=== PATIENT | female | born 1960 | race Caucasian/White ===

== ENCOUNTER 2017-11-07 18:39 | Emergency (ER) | payer BC ==
[2017-11-07] MEDS: KETOROLAC 15 MG INJ IM (20:01)
== END 2017-11-07 20:46 | disposition home or self-care (01) ==
LOC: FTE 18:39
DX: R51 Headache (principal); I10 Essential (primary) hypertension
CPT/HCPCS: 93005; 96372; 99284-25

== ENCOUNTER 2018-01-22 11:24 | Emergency (ER) | payer BC ==
[2018-01-22 13:12] LABS: ADD UMIC YES; UR ASCORBIC ACID NEGATIVE (NEGATIVE); UR BACTERIA FEW /HPF (NONE SEEN); UR BILIRUBIN (Dip) NEGATIVE (NEGATIVE); UR BLOOD (Dip) 2+ mg/dL (NEGATIVE); UR CLARITY CLEAR (CLEAR); UR COLOR COLORLESS (YELLOW); UR GLUCOSE (Dip) NEGATIVE (NEGATIVE); UR KETONES (Dip) NEGATIVE (NEGATIVE); UR LEUKOCYTE ESTERASE (Dip) NEGATIVE Leu/ul (NEGATIVE); UR NITRITE (Dip) NEGATIVE (NEGATIVE); UR RBC 0 /HPF (0-5); UR SPECIFIC GRAVITY (Dip) 1.003 (1.003-1.030); UR SQUAMOUS EPITHELIAL CELL FEW /HPF (FEW); UR TOTAL PROTEIN (Dip) NEGATIVE (NEGATIVE); UR UROBILINOGEN (Dip) NEGATIVE (NEGATIVE); UR WBC 1 /HPF (0-5)
== END 2018-01-22 14:58 | disposition home or self-care (01) ==
LOC: E/R 11:24
DX: R10.84 Generalized abdominal pain (principal); R35.0 Frequency of micturition; E11.9 Type 2 diabetes mellitus without complications; I10 Essential (primary) hypertension
CPT/HCPCS: 74019; 74176; 81001; 99285-25

== ENCOUNTER 2018-01-23 11:50 | Observation (INO) | payer BC ==
[2018-01-23 12:37] LABS: ADD MAN DIFF? NO
[2018-01-23 12:38] LABS: WHITE BLOOD COUNT 10.3 10^3/ul (4.8-10.8)
[2018-01-23 12:38] LABS: BASOPHILS % 0.3 % (0.0-2.0); EOSINOPHILS # 0.1 10^3/ul (0.0-0.5); EOSINOPHILS % 0.9 % (0.0-7.0); HEMATOCRIT 38.9 % (37.0-47.0); HEMOGLOBIN 13.1 g/dl (12.0-16.0); LYMPHOCYTES # 2.2 10^3/ul (0.8-2.9); MEAN CORPUSCULAR HEMOGLOBIN 28.1 pg (29.0-33.0); MEAN CORPUSCULAR HGB CONC 33.7 g/dl (32.0-37.0); MEAN CORPUSCULAR VOLUME 83.5 fl (82.0-101.0); MEAN PLATELET VOLUME 10.3 fl (7.4-10.4); MONOCYTE # 0.9 10^3/ul (0.3-0.9); MONOCYTES % 8.4 % (0.0-11.0); NEUTROPHIL # 7.1 10^3/ul (1.6-7.5); NEUTROPHILS % 69.1 % (39.0-77.0); PLATELET COUNT 385 10^3/UL (140-415); RED BLOOD COUNT 4.66 10^6/ul (4.20-5.40)
[2018-01-23 12:57] LABS: ADD UMIC YES; UR ASCORBIC ACID NEGATIVE (NEGATIVE); UR BILIRUBIN (Dip) NEGATIVE (NEGATIVE); UR BLOOD (Dip) 2+ mg/dL (NEGATIVE); UR CLARITY CLOUDY (CLEAR); UR COLOR RED (YELLOW); UR GLUCOSE (Dip) NEGATIVE (NEGATIVE); UR KETONES (Dip) NEGATIVE (NEGATIVE); UR LEUKOCYTE ESTERASE (Dip) NEGATIVE Leu/ul (NEGATIVE); UR NITRITE (Dip) NEGATIVE (NEGATIVE); UR RBC > 182 /HPF (0-5); UR SPECIFIC GRAVITY (Dip) 1.018 (1.003-1.030); UR TOTAL PROTEIN (Dip) 2+ mg/dl (NEGATIVE); UR UROBILINOGEN (Dip) NEGATIVE (NEGATIVE); UR WBC > 182 /HPF (0-5)
[2018-01-23 12:59] LABS: INR 0.93; PROTIME 12.6 Sec (11.9-14.9)
[2018-01-23 13:00] LABS: PARTIAL THROMBOPLASTIN TIME 28.4 Sec (25.0-35.0)
[2018-01-23 13:02] LABS: ALANINE AMINOTRANSFERASE 25 IU/L (13-69); ALBUMIN 4.7 g/dl (3.3-4.9); ALBUMIN/GLOBULIN RATIO 1.42; ALKALINE PHOSPHATASE 103 IU/L (42-121); ANION GAP 18 (8-16); ASPARTATE AMINO TRANSFERASE 24 IU/L (15-46); BILIRUBIN,INDIRECT 0.3 mg/dl (0-1.1); BILIRUBIN,TOTAL 0.3 mg/dl (0.2-1.3); BLOOD UREA NITROGEN 10 mg/dl (7-20); CALCIUM 9.2 mg/dl (8.4-10.2); CARBON DIOXIDE 24 mmol/L (21-31); CHLORIDE 102 mmol/L (97-110); CREATININE 0.62 mg/dl (0.44-1.00); GLUCOSE 139 mg/dl (70-220); POTASSIUM 3.2 mmol/L (3.5-5.1); SODIUM 141 mmol/L (135-144)
[2018-01-23] MEDS: PHENAZOPYRIDINE 100 MG TAB PO (13:32)
[2018-01-23] MEDS: KETOROLAC 30 MG INJ IV (13:32)
[2018-01-23] MEDS: CEFTRIAXONE 1 GM/50 ML (PMX) 50 ML IVPB (13:32)
[2018-01-23] MEDS ORDERED: ONDANSETRON 4 MG INJ IV ×2 (14:30→15:00)
[2018-01-23] MEDS ORDERED: ACETAMINOPHEN 325 MG TAB PO (14:30)
[2018-01-23] MEDS ORDERED: MAGNESIUM HYDROXIDE 30ML CUP PO (15:00)
[2018-01-23] MEDS ORDERED: DEXTROSE 50% 50 ML SYRINGE IV ×2 (15:00)
[2018-01-23] MEDS ORDERED: ALBUTEROL/IPRATROPIUM (NEB) 3 ML AMP HHN (15:00)
[2018-01-23] MEDS ORDERED: NACL 0.9% 3 ML SYG IV (15:00)
[2018-01-23] MEDS ORDERED: morphine LIQ (10 MG/5 ML) CUP PO (15:00)
[2018-01-23] MEDS ORDERED: GLUCOSE GEL 15 GRAM TUBE BUCCAL (15:00)
[2018-01-23] MEDS ORDERED: HYDROCODONE/APAP (5/325) TAB PO (15:00)
[2018-01-23] MEDS ORDERED: GLUCAGON 1 MG INJ IM (15:00)
[2018-01-23] MEDS ORDERED: LORAZEPAM 0.5 MG TAB PO (15:00)
[2018-01-23] MEDS ORDERED: GLUCOSE GEL 15 GRAM TUBE PO ×2 (15:00)
[2018-01-23] MEDS ORDERED: DOCUSATE SODIUM 100 MG CAP PO (15:00)
[2018-01-23] MEDS ORDERED: hydrALAzine 20 MG INJ IV (15:00)
[2018-01-23] MEDS ORDERED: NITROGLYCERIN (SL) 0.4 MG TAB SL (15:00)
[2018-01-23] MEDS ORDERED: NA PHOSPHATE/BIPHOS 133 ML ENEMA PR (15:00)
[2018-01-23 15:43] LABS: FREE T4 (FREE THYROXINE) 1.12 ng/dl (0.64-1.79)
[2018-01-23] MEDS: SOD CHLORIDE 0.9% 1,000 ML IV (16:33)
[2018-01-23] MEDS: PIPER-TAZO 3.375 GM IV (PMX) 100 ML IVPB ×4 (16:34→16:39)
[2018-01-23] MEDS: ACETAMINOPHEN 325 MG TAB PO (16:56)
[2018-01-23] MEDS: INSULIN ASPART [NOVOLOG] 3 ML PEN SC ×2 (16:59→21:00)
[2018-01-23] MEDS: MEROPENEM 1 GM/50ML(PMX) 50 ML IVPB ×3 (17:26→23:11)
[2018-01-23 19:17] LABS: LIPASE 87 U/L (23-300)
[2018-01-23] MEDS: HEPARIN 5,000 UNIT/0.5 ML VIAL SC (21:31)
[2018-01-23] MEDS: ATORVASTATIN 20 MG TAB PO (21:31)
[2018-01-24] MEDS ORDERED: ACCU-CHEK XX (02:00)
[2018-01-24] MEDS: ACCU-CHEK XX ×2 (02:00→21:44)
[2018-01-24] MEDS: SOD CHLORIDE 0.9% 1,000 ML IV ×2 (05:33→10:40)
[2018-01-24] MEDS: PANTOPRAZOLE (EC) 40 MG TAB PO (05:33)
[2018-01-24 05:52] LABS: ADD MAN DIFF? NO
[2018-01-24 05:56] LABS: WHITE BLOOD COUNT 7.9 10^3/ul (4.8-10.8)
[2018-01-24 05:56] LABS: BASOPHIL # 0.1 10^3/ul (0.0-0.1); BASOPHILS % 0.6 % (0.0-2.0); EOSINOPHILS # 0.2 10^3/ul (0.0-0.5); HEMATOCRIT 36.8 % (37.0-47.0); HEMOGLOBIN 11.9 g/dl (12.0-16.0); LYMPHOCYTES # 2.3 10^3/ul (0.8-2.9); LYMPHOCYTES % 28.9 % (15.0-51.0); MEAN CORPUSCULAR HEMOGLOBIN 27.4 pg (29.0-33.0); MEAN CORPUSCULAR HGB CONC 32.3 g/dl (32.0-37.0); MEAN CORPUSCULAR VOLUME 84.6 fl (82.0-101.0); MEAN PLATELET VOLUME 10.8 fl (7.4-10.4); MONOCYTE # 0.9 10^3/ul (0.3-0.9); MONOCYTES % 10.8 % (0.0-11.0); NEUTROPHIL # 4.5 10^3/ul (1.6-7.5); NEUTROPHILS % 57.4 % (39.0-77.0); PLATELET COUNT 365 10^3/UL (140-415); RED BLOOD COUNT 4.35 10^6/ul (4.20-5.40)
[2018-01-24 06:05] LABS: HEMOGLOBIN A1C 5.9 % (0-5.9)
[2018-01-24 06:29] LABS: HDL CHOLESTEROL 50 mg/dl (37-92); LDL CHOLESTEROL,CALCULATED 79 mg/dl; TRIGLYCERIDES 107 mg/dl (0-149)
[2018-01-24 06:29] LABS: CHOLESTEROL 150 mg/dl (100-200)
[2018-01-24 06:38] LABS: ANION GAP 14 (8-16); BLOOD UREA NITROGEN 11 mg/dl (7-20); CALCIUM 8.5 mg/dl (8.4-10.2); CARBON DIOXIDE 27 mmol/L (21-31); CHLORIDE 104 mmol/L (97-110); CREATININE 0.54 mg/dl (0.44-1.00); GLUCOSE 97 mg/dl (70-220); PHOSPHORUS 3.5 mg/dl (2.5-4.9); POTASSIUM 3.4 mmol/L (3.5-5.1); SODIUM 142 mmol/L (135-144)
[2018-01-24] MEDS: INSULIN ASPART [NOVOLOG] 3 ML PEN SC ×4 (07:54→20:50)
[2018-01-24] MEDS: HEPARIN 5,000 UNIT/0.5 ML VIAL SC ×2 (08:37→20:52)
[2018-01-24] MEDS: HYDROCHLOROTHIAZIDE 12.5 MG CAP PO (08:38)
[2018-01-24] MEDS: HYDROXYCHLOROQUINE 200 MG TAB PO (08:38)
[2018-01-24] MEDS: LOSARTAN 25 MG TAB PO (08:38)
[2018-01-24] MEDS ORDERED: PANTOPRAZOLE (EC) 40 MG TAB PO (09:00)
[2018-01-24] MEDS: MEROPENEM 1 GM/50ML(PMX) 50 ML IVPB (09:10)
[2018-01-24] MEDS: POTASSIUM CHLORIDE (SR) 20 MEQ TAB PO (09:58)
[2018-01-24 12:25] LABS: ADD UMIC YES; UR ASCORBIC ACID NEGATIVE (NEGATIVE); UR BACTERIA FEW /HPF (NONE SEEN); UR BILIRUBIN (Dip) NEGATIVE (NEGATIVE); UR BLOOD (Dip) 2+ mg/dL (NEGATIVE); UR CLARITY CLEAR (CLEAR); UR COLOR STRAW (YELLOW); UR GLUCOSE (Dip) NEGATIVE (NEGATIVE); UR KETONES (Dip) NEGATIVE (NEGATIVE); UR LEUKOCYTE ESTERASE (Dip) NEGATIVE Leu/ul (NEGATIVE); UR NITRITE (Dip) NEGATIVE (NEGATIVE); UR RBC 1 /HPF (0-5); UR SPECIFIC GRAVITY (Dip) 1.008 (1.003-1.030); UR TOTAL PROTEIN (Dip) NEGATIVE (NEGATIVE); UR UROBILINOGEN (Dip) NEGATIVE (NEGATIVE); UR WBC 0 /HPF (0-5)
[2018-01-24] MEDS: ACETAMINOPHEN 325 MG TAB PO (19:42)
[2018-01-24] MEDS: ATORVASTATIN 20 MG TAB PO (20:50)
[2018-01-25 05:48] LABS: ADD MAN DIFF? NO
[2018-01-25 05:53] LABS: BASOPHIL # 0.1 10^3/ul (0.0-0.1); BASOPHILS % 0.6 % (0.0-2.0); EOSINOPHILS # 0.2 10^3/ul (0.0-0.5); EOSINOPHILS % 2.5 % (0.0-7.0); HEMATOCRIT 37.2 % (37.0-47.0); LYMPHOCYTES # 2.8 10^3/ul (0.8-2.9); LYMPHOCYTES % 32.6 % (15.0-51.0); MEAN CORPUSCULAR HEMOGLOBIN 27.5 pg (29.0-33.0); MEAN CORPUSCULAR HGB CONC 32.3 g/dl (32.0-37.0); MEAN CORPUSCULAR VOLUME 85.1 fl (82.0-101.0); NEUTROPHIL # 4.4 10^3/ul (1.6-7.5); NEUTROPHILS % 52.1 % (39.0-77.0); PLATELET COUNT 368 10^3/UL (140-415); RED BLOOD COUNT 4.37 10^6/ul (4.20-5.40); RED CELL DISTRIBUTION WIDTH 16.3 % (11.5-14.5)
[2018-01-25 05:53] LABS: WHITE BLOOD COUNT 8.4 10^3/ul (4.8-10.8)
[2018-01-25] MEDS: INSULIN ASPART [NOVOLOG] 3 ML PEN SC ×3 (08:00→17:22)
[2018-01-25] MEDS: HYDROXYCHLOROQUINE 200 MG TAB PO (08:45)
[2018-01-25] MEDS: HYDROCHLOROTHIAZIDE 12.5 MG CAP PO (08:45)
[2018-01-25] MEDS: HEPARIN 5,000 UNIT/0.5 ML VIAL SC (08:45)
[2018-01-25] MEDS: ACETAMINOPHEN 325 MG TAB PO ×2 (08:45→16:53)
[2018-01-25] MEDS: LOSARTAN 25 MG TAB PO (08:46)
[2018-01-25 11:26] LABS: ANION GAP 14 (8-16); BLOOD UREA NITROGEN 8 mg/dl (7-20); CALCIUM 8.9 mg/dl (8.4-10.2); CARBON DIOXIDE 25 mmol/L (21-31); CHLORIDE 107 mmol/L (97-110); CREATININE 0.51 mg/dl (0.44-1.00); GLUCOSE 96 mg/dl (70-220); POTASSIUM 4.1 mmol/L (3.5-5.1); SODIUM 142 mmol/L (135-144)
[2018-01-25] MEDS ORDERED: Insulin NOVOLOG SS MILD Algorithm (NPO/TPN/ENTERAL FEEDS) SC (17:00)
[2018-01-25] MEDS ORDERED: INSULIN ASPART [NOVOLOG] 3 ML PEN SC (17:00)
== END 2018-01-25 18:26 | disposition home or self-care (01) ==
LOC: E/R 11:50 → PP2 14:05
DX: R31.9 Hematuria, unspecified (principal); N95.0 Postmenopausal bleeding; I10 Essential (primary) hypertension; E78.00 Pure hypercholesterolemia, unspecified; E11.9 Type 2 diabetes mellitus without complications; Z79.84 Long term (current) use of oral hypoglycemic drugs
CPT/HCPCS: 76830; 76856; 80048; 80053; 80061; 81001; 82962; 83036; 83690; 83735; 84100; 84439; 84443; 85025; 85610; 85730; 87086; 96374; 96375; 97161; 99285-25; G0378